=== PATIENT | female | born 1990 | race Hispanic/Latino ===

== ENCOUNTER 2018-08-30 09:56 | Emergency (ER) | payer SELFPAY ==
[2018-08-30 10:05] VITALS: BMI 36.7
--- NOTE | 2018-08-30 10:42 | ED PDOC ---
Lower Extremity Pain/Injury Time Seen by Provider: 08/30/18 10:21 Chief Complaint (Nursing): Lower Extremity Problem/Injury Chief Complaint (Provider): Lower Extremity Problem/Injury History Per: Patient History/Exam Limitations: no limitations Onset/Duration Of Symptoms: Days (x3 days) Current Symptoms Are (Timing): Still Present Additional Complaint(s): 27 year old female with a past medical history of a cholecystectomy, presents to the emergency department with left ankle/foot pain, onset x3 days. Patient states she woke up with pain x2 weeks earlier and had swelling in legs. She was seen at [facility] where she had a duplex US done that was normal and negative for DVT. Patient has positive OCP use and is traveling from [place]. Her flight was in June. Patient further reports that she been able to ambulate but with pain and denies weakness or paresthesia. PMD: no provider Past Medical History Reviewed: Historical Data, Nursing Documentation, Vital Signs Vital Signs: Last Vital Signs Temp 97.5 F L 08/30/18 10:07 Pulse 92 H 08/30/18 10:07 Resp 20 08/30/18 10:07 BP 135/83 08/30/18 10:07 Pulse Ox 99 08/30/18 10:07 - Medical History PMH: No Chronic Diseases Denies: Chronic Kidney Disease - Surgical History Surgical History: Cholecystectomy - Family History Family History: States: No Known Family Hx - Home Medications Home Medications: Ambulatory Orders Medication Instructions Recorded Ibuprofen [Motrin] 600 mg PO Q6H PRN #20 tab 08/30/18 - Allergies Allergies/Adverse Reactions: Allergies Allergy/AdvReac Type Severity Reaction Status Date / Time No Known Allergies Allergy Verified 08/30/18 10:26 Review of Systems ROS Statement: Except As Marked, All Systems Reviewed And Found Negative Musculoskeletal: Positive for: Foot Pain (left foot and ankle pain) Neurological: Positive for: Weakness. Negative for: Other (paresthesia) Physical Exam - Reviewed Nursing Documentation Reviewed: Yes Vital Signs Reviewed: Yes - Physical Exam Appears: Positive for: Non-toxic, No Acute Distress Head Exam: Positive for: ATRAUMATIC, NORMOCEPHALIC Skin: Positive for: Normal Color, Warm, Dry Eye Exam: Positive for: Normal appearance, EOMI, PERRL Neck: Positive for: Normal, Painless ROM, Supple Cardiovascular/Chest: Positive for: Regular Rate, Rhythm. Negative for: Murmur Respiratory: Positive for: Normal Breath Sounds. Negative for: Respiratory Distress Pulses-Dorsalis Pedis (L): 2+ Pulses-Dorsalis Pedis (R): 2+ Extremity: Positive for: Tenderness (left foot: tenderness to ankle and proximal foot), Calf Tenderness (mild), Other (sensation intact; 5/5 strength; (- )induration; (-) lesion). Negative for: Pedal Edema, Deformity Neurologic/Psych: Positive for: Alert, Oriented. Negative for: Motor/Sensory Deficits - ECG O2 Sat by Pulse Oximetry: 99 (RA) Pulse Ox Interpretation: Normal Medical Decision Making Medical Decision Making: Time: 1028 Impression: Ankle/foot pain Plan: --ED urine dipstick --Motrin tab 600 mg PO --Ankle xray 3 views --Foot xray 3 views --Duplex lower extremity US Time: 1119 US FINDINGS: 2-D, color and duplex Doppler analysis of the lower extremity venous circulation using routine protocol from the femoral veins through the popliteal veins. Venous compressibility: Normal. Flow and augmentation patterns: Normal. Visualized veins upper third of calf: Normal. Preston cyst: None. IMPRESSION: No sonographic or Doppler evidence for DVT in left lower extremity. Time: 1232 Foot xray FINDINGS: BONES: No evidence of acute displaced fracture nor dislocation. Osseous structures appear intact. Soft tissues appear grossly unremarkable. JOINTS: Normal. SOFT TISSUES: Normal. OTHER FINDINGS: None. IMPRESSION: No acute displaced fracture nor dislocation. Time: 1233 Ankle x-ray FINDINGS: BONES: Normal. No fracture. JOINTS: Normal. No osteoarthritis. Ankle mortise maintained. Talar dome intact SOFT TISSUES: Normal. OTHER FINDINGS: None. IMPRESSION: Normal left ankle radiographs. Time: 1250 Called podiatry for consultation. Scribe Attestation: Documented by Osmel Lee, acting as a scribe for Ilana Pierce MD. Provider Scribe Attestation: All medical record entries made by the Scribe were at my direction and personally dictated by me. I have reviewed the chart and agree that the record accurately reflects my personal performance of the history, physical exam, medical decision making, and the department course for this patient. I have also personally directed, reviewed, and agree with the discharge instructions and disposition. Disposition - Clinical Impression Clinical Impression: Plantar fasciitis - Disposition Referrals: Podiatry Clinic [Outside] Disposition: Routine/Home Disposition Time: 14:05 Condition: IMPROVED Prescriptions: Ibuprofen [Motrin] 600 mg PO Q6H PRN #20 tab PRN Reason: Pain, Moderate (4-7) Instructions: Heel Pain (Caused by Plantar Fasciitis), Plantar Fasciitis Exercises Forms: [facility] (Arabic)
--- NOTE | 2018-08-30 11:50 | US ---
Date of service: 08/30/2018 HISTORY: LLE pain. PRIORS: None. FINDINGS: 2-D, color and duplex Doppler analysis of the lower extremity venous circulation using routine protocol from the femoral veins through the popliteal veins. Venous compressibility: Normal. Flow and augmentation patterns: Normal. Visualized veins upper third of calf: Normal. Preston cyst: None. IMPRESSION: No sonographic or Doppler evidence for DVT in left lower extremity.
--- NOTE | 2018-08-30 12:37 | RAD ---
Date of service: 08/30/2018 PROCEDURE: Left Ankle Radiographs. HISTORY: Pain COMPARISON: Correlation made with concurrent radiographs left foot FINDINGS: BONES: Normal. No fracture. JOINTS: Normal. No osteoarthritis. Ankle mortise maintained. Talar dome intact SOFT TISSUES: Normal. OTHER FINDINGS: None. IMPRESSION: Normal left ankle radiographs.
--- NOTE | 2018-08-30 12:37 | RAD ---
Date of service: 08/30/2018 PROCEDURE: Left Foot Radiographs. HISTORY: Pain COMPARISON: Comparison made with concurrent radiographs of the left ankle FINDINGS: BONES: No evidence of acute displaced fracture nor dislocation. Osseous structures appear intact. Soft tissues appear grossly unremarkable. JOINTS: Normal. SOFT TISSUES: Normal. OTHER FINDINGS: None. IMPRESSION: No acute displaced fracture nor dislocation.
[2018-08-30 14:21] VITALS: BP 111/72; PULSE 89; RESP 18; TEMP 98
--- NOTE | 2018-08-30 14:35 | CP.PCM.CON ---
History of Present Illness - History of Present Illness History of Present Illness: Podiatry Consult Note: Dr. Subramanian 27 year old female patient, with PMHx of hypothyroidism, seen and evaluated for L foot pain. Patient states that she has had the pain for the past 2-3 days. The pain starts with the first step in the morning, tends to hurt by the end of the day and feels better when she rests it. She has taken OTC pain medication for the pain which has helped. Patient states that she is here from [place] and will be here until the end of September. She denies any other acute pedal complaints at this time. Denies N/V/F/SOB/CP. PMHx: hypothyroidism PSHx: Cholycystectomy ALL: NKDA Review of Systems - Constitutional Constitutional: As Per HPI Past Patient History - Past Social History Smoking Status: Never Smoked - CARDIAC Hx Cardiac Disorders: No - PULMONARY Hx Respiratory Disorders: No - NEUROLOGICAL Hx Neurological Disorder: No - HEENT Hx HEENT Problems: No - RENAL Hx Chronic Kidney Disease: No - ENDOCRINE/METABOLIC Hx Endocrine Disorders: No - PSYCHIATRIC Hx Substance Use: No - SURGICAL HISTORY Hx Cholecystectomy: Yes Meds Home Medications: Home Medication List Medication Instructions Recorded Confirmed Type Ibuprofen [Motrin] 600 mg PO Q6H PRN #20 tab 08/30/18 Rx Allergies/Adverse Reactions: Allergies Allergy/AdvReac Type Severity Reaction Status Date / Time No Known Allergies Allergy Verified 08/30/18 10:26 Physical Exam - Constitutional Appears: Non-toxic, No Acute Distress - Head Exam Head Exam: ATRAUMATIC, NORMOCEPHALIC - Extremities Exam Additional comments: Vascular: DP/PT 2/4, CFT < 3 seconds, TG warm to warm, no edema present Ortho: Pain with palpation of plantar medial calcaneal tubercle, no pain with calf compression, MMT 5/5 in all compartments Neuro: Gross and protective sensation intact Derm: No open lesions, no erythema, no clinical signs of infection - Neurological Exam Neurological exam: Alert, Oriented x3 - Psychiatric Exam Psychiatric exam: Normal Affect, Normal Mood Results - Vital Signs Recent Vital Signs: Last Vital Signs Temp 98.0 F 08/30/18 14:15 Pulse 89 08/30/18 14:15 Resp 18 08/30/18 14:15 BP 111/72 08/30/18 14:15 Pulse Ox 100 08/30/18 14:15 Assessment & Plan - Assessment and Plan (Free Text) Assessment: 27 year old female patient, with PMHx of hypothyroidism, seen and evaluated for L foot plantar fasciitis Plan: Patient seen and evaluated with all quetsions and concerns addressed L foot and ankle x-rays reviewed; no osseous abnormalities Educated patient on nature of plantar fasciitis and its etiology L US; no evidence of DVT Educated patient on RICE protocol Gave stretching exercises to patient to perform 2x daily OTC pain medicine Encouraged supportive shoe gear with patient Advised patient to f/u in clinic or office for continued care Thank you for the consult - Date & Time Date: 08/30/18 Time: 14:33
[2018-09-02 16:58] VITALS: O2SAT 99
== END 2018-08-30 14:15 | disposition home or self-care (01) ==
LOC: H.ER 09:56
DX: M72.2 Plantar fascial fibromatosis (principal); E03.9 Hypothyroidism, unspecified